=== PATIENT | female | born 1940 | race Two or more races ===

== ENCOUNTER 2019-04-24 18:02 | Emergency (ER) | payer MEDICARE, OTHER ==
[~2019-04-24] VITALS: Ht 167.6 cm; Wt 72.6 kg
[2019-04-24] MEDS ORDERED: Morphine Sulfate 4mg/ml Inj (IV USE ONLY) ONE ×2 (18:07→18:37)
--- NOTE | 2019-04-24 18:08 | Emergency Room Report ---
History of Present Illness General Chief Complaint: Abdominal Pain Source: EMS (Henri Shah MD) Present Illness HPI Disclaimer: Please note that this report is being documented using DRAGON technology. This can lead to erroneous entry secondary to incorrect interpretation by the dictating instrument. HPI: 79-year-old female with history of diabetes and hypertension presents for evaluation of abdominal pain. Symptoms began approximately was 2 hours ago. She was in her usual state of health until she drank some milk approximately 4 hours ago and then complained of epigastric pain rating up into the chest nausea with vomiting. Denies hematemesis. Denies recent diarrhea. Pain is severe. No prior episodes of similar pain. She does suffer from acid reflux. States the sensation is different. She has a history of hysterectomy and a CABG performed many years ago. No history of bowel obstruction to the patient' s knowledge. No exacerbating or relieving factors. Does not take anticoagulants. PMH: Diabetes, hypertension, CAD PSH: CABG, hysterectomy Allergies: Denies Social Hx: Denies drug, alcohol or tobacco use (Henri Shah MD) Allergies: Coded Allergies: No Known Allergies (Unverified , 04/24/19) Patient History Last Menstrual Period: 40 yrs ago (Henri Shah MD) Nursing Documentation-PMH Past Medical History: No History, Except For Hx Cardiac Problems: No Hx Hypertension: Yes Hx Pacemaker: No Hx Asthma: No Hx COPD: No Hx Diabetes: Yes Hx Cancer: No Hx Gastrointestinal Problems: No Hx Dialysis: No History Of Psychiatric Problem: No Hx Neurological Problems: No Hx Cerebrovascular Accident: No Hx Seizures: No (Henri Shah MD) Review of Systems All Other Systems: negative except mentioned in HPI (Henri Shah MD) Physical Exam Vital Signs Date Time Temp Pulse Resp B/P (MAP) Pulse Ox O2 Delivery O2 Flow Rate FiO2 04/24/19 17:57 97.3 61 16 133/59 (83) 100 Room Air General: Awake and alert, uncomfortable, writhing in pain HEENT: NC/AT. EOMI. edentulous. Moist mucous membranes Neck: Supple, trachea midline Chest Wall: No tenderness, no deformity Cardiovascular: RRR. S1 and S2 normal. No murmur appreciated Resp: Normal work of breathing. No cough, wheezing or crackles appreciated Abdomen: Abdomen is soft, nondistended. Tender in the epigastrium, left upper quadrant, right upper quadrant. Negative Tinoco's. No rebound. No masses. Skin: Midline sternotomy scar is clean dry and intact. No abrasions, laceration or rash over the exposed skin MSK: Normal tone and bulk. Moving all extremities. No obvious deformity. Neuro: Awake and alert. Mentating appropriately. (Henri Shah MD) Procedures Critical Care Time Critical Care Time Total critical care time: Approximately 45 minutes Due to a high probability of clinically significant, life threatening deterioration, the patient required the highest level of preparedness to intervene emergently and I personally spent this critical care time directly and personally managing the patient. This critical care time included obtaining a history, examining the patient, pulse oximetry, ordering and reviewing studies , ordering treatments, evaluating response to treatment and updating management plan as needed, frequent reassessment and discussion with other providers as well as arranging for ultimate disposition. This critical to care time was performed to assess and manage the high probability of life-threatening deterioration that could result in multiorgan failure. This critical care time is separate from the separately billable procedures and treating other patients. (Henri Shah MD) Medical Decision Making Diagnostic Impression: Primary Impression: Choledocholithiasis Additional Impressions: Biliary sepsis Hypokalemia ER Course 79-year-old female presents for evaluation of sudden onset abdominal pain approximately 2 hours ago. Differential includes was not limited to bowel obstruction, cholecystitis, choledocholithiasis, cholangitis, pancreatitis, AAA , peptic ulcer disease, perforated ulcer, colitis, diverticulitis, appendicitis , mesenteric ischemia. We will start broad metabolic infectious work-up. Will send patient for CT scan of the abdomen and obtain a KUB in the meantime. She also have a EKG and cardiac enzymes sent given the radiation of the pain. Antiemetics, IV fluids and pain medication are ordered. Vital signs are within normal limits on arrival. Laboratory Tests Test 04/24/19 18:08 04/24/19 18:50 White Blood Count 17.3 K/UL (4.8-10.8) H Red Blood Count 5.04 M/UL (4.20-5.40) Hemoglobin 14.8 G/DL (12.0-16.0) Hematocrit 42.0 % (37.0-47.0) Mean Corpuscular Volume 83 FL (80-99) Mean Corpuscular Hemoglobin 29.4 PG (27.0-31.0) Mean Corpuscular Hemoglobin Concent 35.2 G/DL (32.0-36.0) Red Cell Distribution Width 10.5 % (11.6-14.8) L Platelet Count 213 K/UL (150-450) Mean Platelet Volume 5.5 FL (6.5-10.1) L Neutrophils (%) (Auto) 84.1 % (45.0-75.0) H Lymphocytes (%) (Auto) 8.4 % (20.0-45.0) L Monocytes (%) (Auto) 6.5 % (1.0-10.0) Eosinophils (%) (Auto) 0.4 % (0.0-3.0) Basophils (%) (Auto) 0.6 % (0.0-2.0) Sodium Level 142 MMOL/L (136-145) Potassium Level 2.7 MMOL/L (3.5-5.1) *L Chloride Level 99 MMOL/L (98-107) Carbon Dioxide Level 32 MMOL/L (21-32) Anion Gap 11 mmol/L (5-15) Blood Urea Nitrogen 19 mg/dL (7-18) H Creatinine 1.0 MG/DL (0.55-1.30) Estimate Glomerular Filtration Rate mL/min (>60) Glucose Level 281 MG/DL (74-106) H Calcium Level 8.9 MG/DL (8.5-10.1) Total Bilirubin 1.6 MG/DL (0.2-1.0) H Direct Bilirubin 0.9 MG/DL (0.0-0.3) H Aspartate Amino Transferase (AST) 237 U/L (15-37) H Alanine Aminotransferase (ALT) 39 U/L (12-78) Alkaline Phosphatase 220 U/L (46-116) H Troponin I 0.000 ng/mL (0.000-0.056) Total Protein 7.5 G/DL (6.4-8.2) Albumin 4.0 G/DL (3.4-5.0) Globulin 3.5 g/dL Albumin/Globulin Ratio 1.1 (1.0-2.7) Lipase 83 U/L (73-393) Urine Color Pale yellow Urine Appearance Clear Urine pH 7 (4.5-8.0) Urine Specific [place] 1.010 (1.005-1.035) Urine Protein Negative (NEGATIVE) Urine Glucose (UA) 1+ (NEGATIVE) H Urine Ketones 2+ (NEGATIVE) H Urine Blood Negative (NEGATIVE) Urine Nitrite Negative (NEGATIVE) Urine Bilirubin Negative (NEGATIVE) Urine Urobilinogen Normal MG/DL (0.0-1.0) Urine Leukocyte Esterase Negative (NEGATIVE) Lactic Acid Level 3.90 mmol/L (0.4-2.0) H (Henri Shah MD) ER Course Patient was endorsed me by Dr. Shah I discussed the patient with capitated physician Dr. Dave for [facility]. He agreed to accept the patient in transfer. Patient will be transferred for continuity of care. Patient is currently hemodynamically stable. (Ahmet Dodson MD) EKG Diagnostic Results EKG Time: 18:29 Rate: normal Rhythm: NSR ST Segments: no acute changes Other Impression Sinus rhythm, left axis deviation, prolonged QTC at 503 ms, no ST segment changes (Henri Shah MD) Rhythm Strip Diag. Results Rhythm Strip Time: 18:29 EP Interpretation: yes Rate: 60s Rhythm: NSR, no PVC's, no ectopy (Henri Shah MD) Chest X-Ray Diagnostic Results Chest X-Ray Diagnostic Results : Chest X-Ray Ordered: Yes Indication: Chest Pain Interpretation: no consolidation, no effusion, no pneumothorax, no acute cardiopulmonary disease Impression: No acute disease Electronically Signed by: Electronically signed by Dr. Henri Shah (Henri Shah MD) Other X-Ray Diagnostic Results Other X-Ray Diagnostic Results : X-Ray ordered: KUB # of Views/Limited Vs Complete: 1 View Indication: Pain Interpretation: nonspecific bowel gas, no sbo Electronically Signed by: Electronically signed by Dr. Henri Shah (Henri Shah MD) Reevaluation Time: 21:13 Last Vital Signs Date Time Temp Pulse Resp B/P (MAP) Pulse Ox O2 Delivery O2 Flow Rate FiO2 04/24/19 17:57 97.3 61 16 133/59 (83) 100 Room Air Reevaluation Impression Sepsis reevaluation: I, Dr. Henri Shah, reevaluate the patient at 2113 Capillary refill: Less than 2 seconds Heart rate: 93 Respiratory rate: 17 Initial Lactate: 3.9 Repeat Lactate: Pending Labs show an elevated white count at 17.3 with a shift of 84%. Chemistry shows a significant hypokalemia with a level of 2.7, elevated glucose, elevated lactic acid at 3.9 elevated total bilirubin and direct bilirubin as well as elevated AST and alkaline phosphatase. CT scan shows gallbladder distention and mildly dilated biliary ducts as well. 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 Appendix is unremarkable. Ultrasound of the gallbladder was ordered which shows no retained gallbladder stone, no gallbladder wall thickening but the CBD is dilated at 11 mm. Patient was treated with Zosyn. Continue to receive IV fluids. Repeat lactate pending. She will require admission with GI consultation and possible ERCP. Possible transfer due to insurance plan. Pain is now well controlled and patient is stable for transfer if necessary. (Henri Shah MD) Status: improved (Ahmet Dodson MD) Disposition: XFER SHT-TRM HOSP Condition: Serious eHnri Shah MD Apr 24, 2019 18:08 Ahmet Dodson MD Apr 24, 2019 22:45
[2019-04-24] MEDS ORDERED: Omnipaque-300 100ml vial INJ PRN (18:15)
[2019-04-24] MEDS ORDERED: Morphine Sulfate 4mg/ml Inj (IV USE ONLY) IVP ONE ×3 (18:15→20:30)
[2019-04-24 18:18] VITALS: BP 137/51
[2019-04-24 18:47] LABS: BASOPHILS % (AUTO) 0.6 % (0.0-2.0); EOSINOPHILS % (AUTO) 0.4 % (0.0-3.0); HEMOGLOBIN 14.8 G/DL (12.0-16.0); LYMPHOCYTES % (AUTO) 8.4 % (20.0-45.0); MEAN CORPUSCULAR VOLUME 83 FL (80-99); MONOCYTES % (AUTO) 6.5 % (1.0-10.0); NEUTROPHILS % (AUTO) 84.1 % (45.0-75.0); PLATELET COUNT 213 K/UL (150-450); RED BLOOD COUNT 5.04 M/UL (4.20-5.40); RED CELL DISTRIBUTION WIDTH 10.5 % (11.6-14.8); WHITE BLOOD COUNT 17.3 K/UL (4.8-10.8)
[2019-04-24 18:59] LABS: ALANINE AMINOTRANSFERASE 39 U/L (12-78); ALBUMIN/GLOBULIN RATIO 1.1 (1.0-2.7); ALKALINE PHOSPHATASE 220 U/L (46-116); ANION GAP 11 mmol/L (5-15); ASPARTATE AMINO TRANSFERASE 237 U/L (15-37); BILIRUBIN,TOTAL 1.6 MG/DL (0.2-1.0); BLOOD UREA NITROGEN 19 mg/dL (7-18); CALCIUM 8.9 MG/DL (8.5-10.1); CARBON DIOXIDE 32 MMOL/L (21-32); CHLORIDE 99 MMOL/L (98-107); SODIUM 142 MMOL/L (136-145)
[2019-04-24 19:01] LABS: BILIRUBIN,DIRECT 0.9 MG/DL (0.0-0.3); POTASSIUM 2.7 MMOL/L (3.5-5.1)
[2019-04-24 19:14] LABS: APPEARANCE,URINE CLEAR; BILIRUBIN, URINE NEGATIVE (NEGATIVE); COLOR,URINE PALE YELLOW; GLUCOSE, URINE (UA) 1+ (NEGATIVE); KETONES,URINE 2+ (NEGATIVE); LEUKOCYTE ESTERASE ,URINE NEGATIVE (NEGATIVE); NITRITE,URINE NEGATIVE (NEGATIVE); PH,URINE 7 (4.5-8.0); PROTEIN,URINE NEGATIVE (NEGATIVE); UROBILINOGEN,URINE NORMAL MG/DL (0.0-1.0)
[2019-04-24 20:00] VITALS: BP 125/62
--- NOTE | 2019-04-24 20:05 | Diagnostic Imaging Report ---
Indication: Abdominal pain Technique: Continuous helical transaxial imaging of the abdomen and pelvis was obtained from the lung bases to the pubic symphysis during intravenous contrast administration. Coronal 2-D reformats were also obtained. Study obtained in a Siemens sensation [address] Automatic Exposure Control was utilized. Total Dose length Product (DLP): 1044.[address] Dose Index Volume (CTDIvol): 19.1 mGy Comparison: None Findings: Mild posterior basal atelectasis noted. The liver is hypodense consistent with fatty infiltration. Sternotomy demonstrated. The heart is enlarged. There is a small hiatal hernia. Biliary ductal dilatation demonstrated. The CBD measures up to about 1 cm. Gallbladder is distended. No ascites seen. Diverticulosis noted. Appendix is normal. There is no ascites. Aorta is mildly calcified. Uterus is absent. There is narrowing of intervertebral discs and accompanying endplate osteophyte formation. Hypertrophied facet joints also demonstrated.. IMPRESSION: Biliary ductal dilatation. Correlate clinically. Distended gallbladder. Cholecystitis not excluded. Fatty liver Diverticulosis of the colon. Atherosclerotic disease. Degenerative changes of the spine Basal atelectasis Other incidental findings. [facility] has communicated the preliminary results to the Emergency Department. Their findings are largely concordant with this report. The CT scanner at [facility] is accredited by the [employer] and the scans are performed using dose optimization techniques as appropriate to a performed exam including Automatic Exposure control.
[2019-04-24] MEDS ORDERED: FOSAMAX70 MG ORAL (20:46)
[2019-04-24] MEDS ORDERED: AMLODIPINE BESYL5 MG ORAL (20:46)
[2019-04-24] MEDS ORDERED: LOSARTAN POTASS50 MG ORAL (20:46)
[2019-04-24] MEDS ORDERED: PRILOSEC OTC20 MG ORAL (20:46)
[2019-04-24] MEDS ORDERED: JANUVIA25 MG ORAL (20:46)
[2019-04-24] MEDS ORDERED: LIPITOR80 MG ORAL (20:46)
[2019-04-24] MEDS ORDERED: LEVOTHYROXINE75 MCG ORAL (20:46)
[2019-04-24] MEDS ORDERED: METFORMIN HCL750 MG ORAL (20:46)
[2019-04-24] MEDS ORDERED: FUROSEMIDE40 MG ORAL (20:46)
[2019-04-24] MEDS ORDERED: TRAMADOL HCL50 MG ORAL (20:46)
[2019-04-24] MEDS ORDERED: REPAGLINIDE1 MG PO (20:46)
[2019-04-24] MEDS ORDERED: Piperacillin/Tazobactam 3.375 GM in NS 110 ML IVPB ONE (21:15)
[2019-04-24 22:00] VITALS: BP 121/48
[2019-04-25] VITALS: BP 117/58
[2019-04-25 01:50] VITALS: BP 117/58
--- NOTE | 2019-04-25 10:02 | Diagnostic Imaging Report ---
Indication: Abdominal pain Technique: Grayscale and duplex Doppler imaging of the abdomen performed. Comparison: None Findings: The biliary ducts appear dilated. The CBD is 11 to 12 mm. No gallstones are demonstrated. There are bilateral renal cysts. There is a calcification in the left kidney which may be a nonobstructive stone. Pancreas is obscured. Spleen is normal size. IMPRESSION: Biliary ductal dilatation. Evaluate further as needed. Dilated gallbladder. No obvious gallstones. Questionable tiny stone in the left kidney.
--- NOTE | 2019-04-25 10:33 | Diagnostic Imaging Report ---
Indication: Dyspnea Comparison: None A single view chest radiograph was obtained. Findings: No definite infiltrate or pulmonary vascular congestion identified. Sternotomy noted. The heart is normal size. The aorta is mildly enlarged consistent with atherosclerotic vascular disease. The bones are osteopenic. Impression: No acute disease
--- NOTE | 2019-04-25 10:33 | Diagnostic Imaging Report ---
Indication: Abdominal pain Comparison: None Single view of the abdomen obtained Findings: Bowel gas pattern is nonspecific. There is relative absence of bowel gas which limits evaluation. There are surgical clips in the pelvis. No mass, ectopic calcifications, or abnormal gas collections are identified. Moderate degenerative changes of the thoracolumbar spine. Generalized osteopenia noted. Impression: No acute findings
--- NOTE | 2019-04-25 16:19 | Cardiology Report ---
APPROVED REPORT EKG Measurement Heart [id number] Normal sinus rhythm Left axis deviation Right bundle branch block Voltage criteria for left ventricular hypertrophy Cannot rule out Septal infarct, age undetermined Abnormal ECG
== END 2019-04-25 01:50 | disposition short-term general hospital (02) ==
LOC: EDBD 18:02 → EMR 18:08
DX: A41.9 Sepsis, unspecified organism (principal); K80.50 Calculus of bile duct without cholangitis or cholecystitis without obstruction; E87.6 Hypokalemia; K76.0 Fatty (change of) liver, not elsewhere classified; K57.90 Diverticulosis of intestine, part unspecified, without perforation or abscess without bleeding; I72.8 Aneurysm of other specified arteries; E11.9 Type 2 diabetes mellitus without complications; I10 Essential (primary) hypertension; I11.9 Hypertensive heart disease without heart failure; I25.10 Atherosclerotic heart disease of native coronary artery without angina pectoris; Z90.710 Acquired absence of both cervix and uterus; Z95.1 Presence of aortocoronary bypass graft; K21.9 Gastro-esophageal reflux disease without esophagitis
CPT/HCPCS: 36415; 71045; 74018; 74177; 76700; 80053; 81003; 82248; 83605; 83690; 84484; 85025; 93005; 96361; 96365; 96367; 96375; 96376; 99291; J2270; J2405; J2543; J3480; J7030; Q9967